=== PATIENT | male | born 1975 | race Caucasian/White ===

== ENCOUNTER 2019-03-25 10:26 | Emergency (ER) | payer SELFPAY ==
--- NOTE | 2019-03-25 11:48 | ER Document Report ---
ED Medical Screen (RME) - General Chief Complaint: Anxiety Stated Complaint: ANXIOUS FEELING,FINGERS NUMB Time Seen by Provider: 03/25/19 11:44 Mode of Arrival: Ambulatory Information source: Patient Notes: 43-year-old male presented to ED for complaint of anxiety and out of his diazepam. He states he had a doctor his primary care doctor gave him 1 refill after he moved here from [place] and stated that she could not give him a second refill on diazepam until he is seeing mental health. He states he is been trying to see mental health but does not have an appointment to May 07. He states he took his last diazepam yesterday at 7 AM. He states he has a history of panic disorder, social anxiety depression. He states he smokes maybe once a week denies alcohol or drugs. I have greeted and performed a rapid initial assessment of this patient. A comprehensive ED assessment and evaluation of the patient, analysis of test results and completion of medical decision making process will be conducted by an additional ED providers. Physical Exam - Vital signs Vitals: Temp Pulse Resp BP Pulse Ox 97.6 F 97 18 134/72 H 99 03/25/19 10:29 03/25/19 10:29 03/25/19 10:29 03/25/19 10:29 03/25/19 10:29 Course - Vital Signs Vital signs: Temp Pulse Resp BP Pulse Ox 97.6 F 97 18 134/72 H 99 03/25/19 10:29 03/25/19 10:29 03/25/19 10:29 03/25/19 10:29 03/25/19 10:29 Doctor's Discharge - Discharge Instructions: Anxiety ([facility])
[2019-03-25 12:14] LABS: APPEARANCE,URINE CLEAR; BILIRUBIN,URINE NEGATIVE (NEGATIVE); COLOR,URINE COLORLESS; GLUCOSE, URINE NEGATIVE (NEGATIVE); KETONES,URINE NEGATIVE (NEGATIVE); PROTEIN,URINE NEGATIVE (NEGATIVE); URINE SPECIFIC GRAVITY 1.001; UROBILINOGEN,URINE NEGATIVE mg/dL (<2.0)
[2019-03-25 12:31] LABS: URINE AMPHETAMINES SCREEN NEGATIVE; URINE BARBITURATES SCREEN NEGATIVE; URINE BENZODIAZEPINES SCREEN UNCONFIRMED POSITIVE; URINE COCAINE SCREEN NEGATIVE; URINE MARIJUANA (THC) SCREEN UNCONFIRMED POSITIVE; URINE METHADONE SCREEN NEGATIVE; URINE PHENCYCLIDINE SCREEN NEGATIVE
--- NOTE | 2019-03-25 13:34 | ER Document Report ---
ED General - General Chief Complaint: Anxiety Stated Complaint: ANXIOUS FEELING,FINGERS NUMB Time Seen by Provider: 03/25/19 11:44 Mode of Arrival: Ambulatory Information source: Patient Notes: HPI: 43-year-old male who presents with increased anxiety. Patient states he is visiting from [place] until May 07 and does not have a primary care physician here. Patient states he has panic attacks and social anxiety disorder. Patient has a pill bottle in hand that was filled by his primary care physician in [place] from February. He does not have a primary care physician. He states he does have money and disability insurance but the first physician appointment he could get was May 07. ROS: See HPI All other review of systems reviewed and otherwise negative Reviewed vital signs and nursing note as charted by RN. PHYSICAL EXAM: CONSTITUTIONAL: Alert and oriented and responds appropriately to questions. Patient does look tearful HEAD: Normocephalic; atraumatic EYES: PERRL; no nystagmus ENT: Normal nose; no rhinorrhea; moist mucous membranes; pharynx without lesions noted NECK: Supple without meningismus; non-tender; no cervical lymphadenopathy, no masses CARD: Regular rate and rhythm; no murmurs; symmetric distal pulses RESP: Normal chest excursion without splinting or tachypnea; breath sounds clear and equal bilaterally; no wheezes, no rhonchi, no rales ABD/GI: Normal bowel sounds; non-distended; soft, non-tender; no palpable organomegaly or masses BACK: The back appears normal and is non-tender to palpation EXT: Normal ROM in all joints; non-tender to palpation; no edema SKIN: No acute lesions noted NEURO: CN 2-12 intact; 5/5 bilateral upper and lower extremity strength with sensation intact to light touch PSYCH: The patient's mood and manner are appropriate. Grooming and personal hygiene are appropriate. TRAVEL OUTSIDE OF THE [place] IN LAST 30 DAYS: No - Related Data Home Medications: valium 10 mg TID po , motrin PRN Past Medical History - General Information source: Patient - Social History Smoking Status: Current Some Day Smoker Chew tobacco use (# tins/day): No Frequency of alcohol use: None Drug Abuse: Marijuana Family History: Reviewed & Not Pertinent Patient has suicidal ideation: No Patient has homicidal ideation: No GI Medical History: Reports: Hx Hiatal Hernia - Left Past Surgical History: Reports: Hx Orthopedic Surgery - Left index finger traumtic amputation Physical Exam - Vital signs Vitals: Temp Pulse Resp BP Pulse Ox 97.6 F 97 18 134/72 H 99 03/25/19 10:29 03/25/19 10:29 03/25/19 10:29 03/25/19 10:29 03/25/19 10:29 Course - Re-evaluation Re-evalutation: 03/25/19 13:37 Given the history and physical examination, I have called 1 of the local primary care physicians who states that he can see the patient on Wednesday. I will provide a short supply of medications until that time. I do not believe patient requires any other imaging or laboratory work at this time. Patient is oriented x4 and denies any suicidal or homicidal ideations. - Vital Signs Vital signs: Temp Pulse Resp BP Pulse Ox 97.6 F 97 18 134/72 H 99 03/25/19 10:29 03/25/19 10:29 03/25/19 10:29 03/25/19 10:29 03/25/19 10:29 - Laboratory Laboratory results interpreted by me: 03/25/19 11:56 Urine Blood SMALL H Discharge - Discharge Clinical Impression: Anxiety Condition: Good Disposition: HOME, SELF-CARE Instructions: Anxiety ([facility]) Additional Instructions: Come back immediately with any increased anxiety, auditory visual hallucinations, thoughts of injuring yourself or others, or any other acute problems. Please follow-up with Dr. Swanson's office on Wednesday as a walk-in as we have discussed. Prescriptions: Diazepam [Valium 5 mg Tablet] 5 mg PO QIDP PRN #12 tablet PRN Reason:
[2019-03-25 13:47] VITALS: BP 123/56
== END 2019-03-25 13:48 | disposition home or self-care (01) ==
LOC: ER 10:26
DX: F41.9 Anxiety disorder, unspecified (principal); R20.0 Anesthesia of skin; F17.200 Nicotine dependence, unspecified, uncomplicated
CPT/HCPCS: 80307; 81001; 99283